=== PATIENT | female | born 1960 | race Caucasian/White ===

== ENCOUNTER 2023-06-12 15:59 | Outpatient (CLI) | payer BC, SELFPAY ==
--- NOTE | 2023-06-12 16:00 | CRLHL7_ITS ---
For Patients: As a result of the Cures Act, medical imaging exams and procedure reports are released immediately into your electronic medical record. You may view this report before your referring provider. If you have questions, please contact your health care provider. INDICATION: Autoimmune hepatitis. TECHNIQUE : Right upper quadrant ultrasound. COMPARISON: August 16, 2021. FINDINGS: Normal-appearing pancreas. The liver demonstrates a coarsened hepatic echotexture and a slightly lobulated contour. This may reflect cirrhosis. No biliary ductal dilatation. The common bile duct is normal at 6 mm. No gallstones. The gallbladder wall measures 2 mm. No sonographic Dey`s sign. The proximal abdominal aorta is normal at 2.5 cm. The proximal IVC is also normal. The pancreas is unremarkable. No upper abdominal ascites. Right jag pelvic kidney measuring 8.9 x 4.7 x 4.1 cm with the right renal cortex measuring 1.2 cm. IMPRESSION: 1. Coarsened hepatic echotexture. This may reflect underlying cirrhosis or other intrinsic hepatic parenchymal process. No intrahepatic mass or biliary ductal dilatation. 2. No gallstones. 3. No right upper quadrant ascites. 4. Right jag pelvic kidney without hydronephrosis. Dictated by Nestor Jack MD @ 06/12/2023 6:38:48 PM (Electronically Signed)
== END 2023-06-12 16:00 | disposition home or self-care (01) ==
PROVIDERS: PCP Family Medicine; Visit Provider Internal Medicine Gastroenterology
DX: K75.4 Autoimmune hepatitis (principal); D64.9 Anemia, unspecified
CPT/HCPCS: 76705